=== PATIENT | male | born 1965 | race Caucasian/White ===

== ENCOUNTER 2017-07-05 19:09 | Outpatient (CLI) | payer SELFPAY | END 2017-07-05 19:10 | disposition EMS.NT | LOC: EMS 19:09 | PROVIDERS: ATTEND Surgery | DX: R46.4 Slowness and poor responsiveness (principal); R61 Generalized hyperhidrosis ==

== ENCOUNTER 2019-09-04 00:27 | Emergency (ER) | payer MEDICAID ==
--- NOTE | 2019-09-04 01:02 | ED Physician Documentation ---
PD HPI MALE - Stated complaint Stated Complaint: MALE - Chief complaint Chief Complaint: General - History obtained from History obtained from: Patient - History of Present Illness Timing - onset: Today Timing - duration: Hours Timing - details: Gradual onset, Waxing and waning Pain level max: 8 (when urinating) Pain level now: 0 Associated symptoms: Dysuria. No: Urinary frequency, Unable to urinate (able to urinate, but painful), Discharge, Genital sore / lesion, Testiclar pain Recently seen: Not recently seen - Additional information Additional information: c/o burning dysuria "like razor blades" (per patient) since this morning. denies h/o similar symptoms. Sexually active, monogamous x years. Here with s.o. who is also registered in ED as patient for unrelated c/o Review of Systems Constitutional: denies: Fever, Chills, Sweats GI: denies: Abdominal Pain : reports: Dysuria. denies: Frequency, Unable to Void, Incontinent, Hematuria Skin: denies: Rash PD PAST MEDICAL HISTORY - Past Medical History Past Medical History: No Cardiovascular: None Respiratory: None Neuro: None Endocrine/Autoimmune: None GI: None : None HEENT: None Psych: None Musculoskeletal: None Derm: None - Past Surgical History Past Surgical History: Yes General: Other Ortho: Other - Present Medications Home Medications: Ambulatory Orders Medication Instructions Recorded Confirmed Ciprofloxacin HCl [Cipro] 500 mg PO BID #14 tablet 09/04/19 Phenazopyridine HCl [Pyridium] 200 mg PO TID PRN #10 tablet 09/04/19 - Allergies Allergies/Adverse Reactions: Allergies Allergy/AdvReac Type Severity Reaction Status Date / Time Penicillins AdvReac Unknown Verified 09/05/19 01:06 - Social History Does the pt smoke?: Yes Smoking Status: Current every day smoker Does the pt drink ETOH?: No Does the pt have substance abuse?: Yes Substance Use and Type: Marijuana - Immunizations Immunizations are current?: No - POLST Patient has POLST: No PD ED PE NORMAL - Vitals Vital signs reviewed: Yes - General General: Alert and oriented X 3, No acute distress, Well developed/nourished - Abdomen Abdomen: Soft, Non tender - Derm Derm: Normal color, Warm and dry, No rash PD ED PE EXPANDED - Male Male : Normal Exam, Circumcised. No: Skin lesions, Discharge Results - Vitals Vitals: Oxygen O2 Source Room air - Labs Labs: Laboratory Tests 09/04/19 09/04/19 02:50 02:50 Urine Color ORANGE Urine Clarity CLEAR Urine pH 6.5 Ur Specific [place] 1.015 Urine Protein Urine Glucose (UA) NEGATIVE Urine Ketones NEGATIVE Urine Occult Blood NEGATIVE Urine Nitrite Urine Bilirubin NEGATIVE Urine Urobilinogen Ur Leukocyte Esterase TRACE H Urine RBC 0-5 Urine WBC 4-5 Ur Squamous Epith Cells FEW Squamous Urine Bacteria Rare Urine Mucus Few Strands Ur Microscopic Review INDICATED Urine Culture Comments INDICATED Chlam trachomat DNA PCR NEGATIVE N.gonorrhoeae DNA (PCR) NEGATIVE T. vaginalis (PCR) NEGATIVE PD MEDICAL DECISION MAKING - ED course Complexity details: reviewed results, re-evaluated patient, considered differential, d/w patient Departure - Departure Disposition: 01 Home, Self Care Clinical Impression: Urinary tract infection Qualifiers: Urinary tract infection type: acute cystitis Hematuria presence: without hematuria Qualified Code(s): N30.00 - Acute cystitis without hematuria Condition: Good Instructions: ED UTI Cystitis Male Prescriptions: Ciprofloxacin HCl [Cipro] 500 mg PO BID #14 tablet Phenazopyridine HCl [Pyridium] 200 mg PO TID PRN #10 tablet PRN Reason: dysuria Discharge Date/Time: 09/04/19 04:00
[2019-09-04] MEDS ORDERED: PHENAZOPYRIDINE 100 MG TABLET PO STA (01:26)
[2019-09-04 03:13] LABS: GLUCOSE, URINE (UA) NEGATIVE (NEGATIVE); KETONES,URINE (UA) NEGATIVE (NEGATIVE); LEUKOCYTE ESTERASE, URINE TRACE (NEGATIVE); OCCULT BLOOD,URINE NEGATIVE (NEGATIVE); PH,URINE 6.5 PH (5.0-7.5)
[2019-09-04 03:15] LABS: BILIRUBIN,URINE NEGATIVE (NEGATIVE); CLARITY,URINE CLEAR (CLEAR); ICTOTEST,URINE NEGATIVE
[2019-09-04 03:22] LABS: BACTERIA,URINE Rare /HPF (None Seen); MUCUS,URINE Few Strands; RBC,URINE 0-5 /HPF (0-5); SQUAMOUS EPITHELIAL CELL,UR FEW Squamous (<= Few)
[2019-09-04] MEDS ORDERED: CIPROFLOXACIN 250 MG TABLET PO STA (03:55)
[2019-09-04 04:01] VITALS: BP 130/81
[2019-09-04 18:29] LABS: TRICHOMONAS VAGINALIS DNA NEGATIVE (NEGATIVE)
== END 2019-09-04 04:00 | disposition home or self-care (01) ==
LOC: ED 00:27
DX: N30.00 Acute cystitis without hematuria (principal); F17.200 Nicotine dependence, unspecified, uncomplicated
CPT/HCPCS: 81001; 87086; 87491; 87591; 87661; 99283; A9270; 81003

== ENCOUNTER 2019-09-05 01:01 | Emergency (ER) | payer MEDICAID ==
--- NOTE | 2019-09-05 03:03 | ED Physician Documentation ---
PD HPI MALE - Stated complaint Stated Complaint: MALE - Chief complaint Chief Complaint: Abd Pain - History obtained from History obtained from: Patient - History of Present Illness Timing - onset: Yesterday Timing - details: Abrupt onset Pain level max: 10 (when urinating) Pain level now: 0 Associated symptoms: Dysuria. No: Urinary frequency, Unable to urinate, Discharge, Genital sore / lesion PD HPI MALE CONTRIB FACTORS: Sexually active Recently seen: Emergency Dept (T+R yesterday for same, did not fill the prescriptions (cipro, pyridium)) - Additional information Additional information: T+R yesterday for same symptoms (severe burning painful urination). Given PO cipro and pyridium and prescriptions for same. He returns due to same symptoms. He did not fill the prescriptions although this would have been difficult even if [place] had [place] He has the paper prescription with him and says he plans to fill it in the morning. Review of Systems Constitutional: denies: Fever, Chills, Sweats GI: denies: Abdominal Pain : reports: Dysuria. denies: Frequency, Unable to Void Skin: denies: Lesions PD PAST MEDICAL HISTORY - Past Medical History Past Medical History: No Cardiovascular: None Respiratory: None Neuro: None Endocrine/Autoimmune: None GI: None : None HEENT: None Psych: None Musculoskeletal: None Derm: None - Past Surgical History Past Surgical History: Yes General: Other Ortho: Other - Present Medications Home Medications: Ambulatory Orders Medication Instructions Recorded Confirmed Ciprofloxacin HCl [Cipro] 500 mg PO BID #14 tablet 09/04/19 Phenazopyridine HCl [Pyridium] 200 mg PO TID PRN #10 tablet 09/04/19 - Allergies Allergies/Adverse Reactions: Allergies Allergy/AdvReac Type Severity Reaction Status Date / Time Penicillins AdvReac Unknown Verified 09/05/19 01:06 - Social History Does the pt smoke?: Yes Smoking Status: Current every day smoker Does the pt drink ETOH?: No Does the pt have substance abuse?: Yes - Immunizations Immunizations are current?: No - POLST Patient has POLST: No PD ED PE NORMAL - Vitals Vital signs reviewed: Yes - General General: Alert and oriented X 3, No acute distress, Well developed/nourished - Abdomen Abdomen: Soft, Non tender - Back Back: No CVA TTP Results - Vitals Vitals: Vital Signs - 24 hr 09/05/19 09/05/19 01:05 03:50 Temperature 36.4 C L 36.8 C Heart Rate 64 56 L Respiratory 18 15 Rate Blood Pressure 141/73 H 126/70 O2 Saturation 99 99 Oxygen O2 Source Room air PD MEDICAL DECISION MAKING - ED course Complexity details: considered differential, d/w patient ED course: given IM rocephin and pyridium PO. As noted in HPI, patient says he will fill the prescriptions in the morning (Cipro and pyridium rx from yesterday's ED visit) Departure - Departure Disposition: 01 Home, Self Care Clinical Impression: Urinary tract infection Qualifiers: Urinary tract infection type: acute cystitis Hematuria presence: without hematuria Qualified Code(s): N30.00 - Acute cystitis without hematuria Condition: Good Instructions: ED UTI Cystitis Male Discharge Date/Time: 09/05/19 03:55
[2019-09-05] MEDS ORDERED: cefTRIAXone 1 GM VIAL IM STA (03:11)
[2019-09-05] MEDS ORDERED: LIDOCAINE 1% 2 ML VIAL MC ONE (03:11)
[2019-09-05] MEDS ORDERED: PHENAZOPYRIDINE 100 MG TABLET PO STA (03:11)
[2019-09-05 03:54] VITALS: BP 126/70
== END 2019-09-05 03:55 | disposition home or self-care (01) ==
LOC: ED 01:01
DX: N30.00 Acute cystitis without hematuria (principal); F17.200 Nicotine dependence, unspecified, uncomplicated
CPT/HCPCS: 96372; 99283; A9270

== ENCOUNTER 2021-04-17 04:42 | Emergency (ER) | payer MEDICAID ==
[2021-04-17] MEDS ORDERED: PROPARACAINE 0.5% OPHTH DROPS 15 ML EACHEYE STA (04:59)
[2021-04-17] MEDS ORDERED: OFLOXACIN 0.3% OPHTH DROPS EACHEYE SCH (05:13)
[2021-04-17] MEDS ORDERED: GENTAMICIN 0.3% OPHTH DROPS EACHEYE STA (05:15)
--- NOTE | 2021-04-17 05:15 | ED Physician Documentation ---
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 He took [id number] ibuprofen with some improvement but still has some pain. He was welding yesterday and not using welding goggles. Does not think he got anything in his eye Review of Systems Eyes: reports: Photophobia, Discharge, Irritation PD PAST MEDICAL HISTORY - Past Medical History Past Medical History: Yes Cardiovascular: None Respiratory: None Neuro: None Endocrine/Autoimmune: None GI: None : None HEENT: None Psych: None Musculoskeletal: None Derm: None - Past Surgical History Past Surgical History: Yes General: Other Ortho: Other - Present Medications Home Medications: Ambulatory Orders Medication Instructions Recorded Confirmed No Known Home Medications 04/17/21 04/17/21 - Allergies Allergies/Adverse Reactions: Allergies Allergy/AdvReac Type Severity Reaction Status Date / Time Penicillins AdvReac Unknown Verified 04/17/21 04:50 - Social History Does the pt smoke?: Yes Smoking Status: Current every day smoker Does the pt drink ETOH?: No Does the pt have substance abuse?: Yes - Immunizations Immunizations are current?: No - POLST Patient has POLST: No PD ED PE NORMAL - Vitals Vital signs reviewed: Yes - General General: Alert and oriented X 3, No acute distress, Well developed/nourished - HEENT HEENT: Atraumatic, PERRL, EOMI, Other (Bilateral eyes with increased fluorescein uptake diffusely. no foreign body on corneas or on eversion of eyelids) - Derm Derm: Normal color, Warm and dry - Psych Psych: Normal mood, Normal affect Results - Vitals Vitals: Vital Signs - 24 hr 04/17/21 04/17/21 04:51 04:55 Temperature 36.7 C 36.7 C Heart Rate 83 83 Respiratory 18 18 Rate Blood Pressure 147/87 H 147/87 H O2 Saturation 96 96 Oxygen O2 Source Room air PD MEDICAL DECISION MAKING - ED course ED course: 56-year-old man presents with bilateral corneal abrasions concerning for mild burn injury from welding antibiotic eyedrops provided. Return precautions given. Plan to follow-up with his primary doctor. Departure - Departure Disposition: 01 Home, Self Care Condition: Good Instructions: Corneal Injury Comments: You are seen in the emergency department for corneal injury after welding without goggles. Make sure that you wear them from now on! Return to the emergency department if you do not have improvement with the antibiotic eyedrops prescribed. You can also get lubricating eye ointment [id number] at your local pharmacy that you should use at nighttime. Please follow-up with your primary doctor for referral to ophthalmology.
[2021-04-17 05:23] VITALS: BP 145/85
== END 2021-04-17 05:22 | disposition home or self-care (01) ==
LOC: ED 04:42
DX: S05.02XA Injury of conjunctiva and corneal abrasion without foreign body, left eye, initial encounter (principal); S05.01XA Injury of conjunctiva and corneal abrasion without foreign body, right eye, initial encounter; X58.XXXA Exposure to other specified factors, initial encounter; Y93.89 Activity, other specified; F17.200 Nicotine dependence, unspecified, uncomplicated
CPT/HCPCS: 99282; A9270; J3490

== ENCOUNTER 2021-12-27 21:01 | Emergency (ER) | payer MEDICAID ==
[2021-12-27 21:05] VITALS: BP 165/92
[2021-12-27 23:47] LABS: BILIRUBIN,URINE NEGATIVE (NEGATIVE); GLUCOSE, URINE (UA) NEGATIVE (NEGATIVE); KETONES,URINE (UA) NEGATIVE (NEGATIVE); LEUKOCYTE ESTERASE, URINE NEGATIVE (NEGATIVE); NITRITE,URINE NEGATIVE (NEGATIVE); OCCULT BLOOD,URINE TRACE-INTA (NEGATIVE); PROTEIN,URINE NEGATIVE (NEGATIVE); UROBILINOGEN,URINE 1 (NORMAL) E.U./dL (NORMAL)
[2021-12-27 23:48] LABS: CLARITY,URINE CLEAR (CLEAR)
[2021-12-27] MEDS ORDERED: PHENAZOPYRIDINE 100 MG TABLET PO STA (23:57)
[2021-12-28] MEDS ORDERED: NITROFURANTOIN MACRO 100 MG CAPSULE PO STA (00:22)
--- NOTE | 2021-12-28 00:26 | ED Physician Documentation ---
PD HPI MALE - Stated complaint Stated Complaint: URINATION ISSUES - Chief complaint Chief Complaint: UTI - History obtained from History obtained from: Patient - Additional information Additional information: Patient is a 56-year-old male with no significant past medical history presenting for evaluation of dysuria which has been present for 3 to 4 days. Denies hematuria, flank pain, fever, vomiting, inability to urinate. Denies concern for STD and denies penile discharge or lesions. Review of Systems Constitutional: denies: Fever Nose: denies: Congestion Cardiac: denies: Chest pain / pressure Respiratory: denies: Dyspnea, Cough GI: denies: Abdominal Pain, Vomiting : reports: Dysuria. denies: Hematuria Skin: denies: Rash Neurologic: denies: Headache PD PAST MEDICAL HISTORY - Past Medical History Cardiovascular: None Respiratory: None Neuro: None Endocrine/Autoimmune: None GI: None : None HEENT: None Psych: None Musculoskeletal: None Derm: None - Past Surgical History Past Surgical History: Yes General: Other Ortho: Other - Present Medications Home Medications: Ambulatory Orders Medication Instructions Recorded Confirmed Nitrofurantoin [Macrobid] 1 cap PO BID #14 cap 12/28/21 Phenazopyridine HCl [Pyridium] 200 mg PO TID PRN #6 tablet 12/28/21 - Allergies Allergies/Adverse Reactions: Allergies Allergy/AdvReac Type Severity Reaction Status Date / Time Penicillins AdvReac Unknown Verified 12/27/21 21:04 - Social History Does the pt smoke?: Yes Smoking Status: Current every day smoker Does the pt drink ETOH?: No Does the pt have substance abuse?: Yes - Immunizations Immunizations are current?: No - POLST Patient has POLST: No PD ED PE NORMAL - General General: Alert and oriented X 3, No acute distress, Well developed/nourished - HEENT HEENT: Atraumatic, Moist mucous membranes - Neck Neck: Supple, no meningeal sign - Cardiac Cardiac: RRR, No murmur, Strong equal pulses - Respiratory Respiratory: No respiratory distress, Clear bilaterally - Abdomen Abdomen: Normal bowel sounds, Soft, Non tender, Non distended - Male Male : Civil Estimator present (NAILA Ramirez), Other (Small area of abraded skin to 6 o'clock position of urethral meatus, no discharge, no lesions, No testicular tenderness or swelling) - Derm Derm: Normal color - Extremities Extremities: No edema - Neuro Neuro: No motor deficit, Normal speech - Psych Psych: Normal mood, Normal affect PD ED PE EXPANDED - Male Male visual: 1 - abrasion Results - Vitals Vitals: Vital Signs - 24 hr 12/27/21 21:04 Temperature 36.4 C L Heart Rate 74 Respiratory 19 Rate Blood Pressure 165/92 H O2 Saturation 98 Oxygen O2 Source Room air - Labs Labs: Laboratory Tests 12/27/21 23:40 Urine Color YELLOW Urine Clarity CLEAR Urine pH 6.0 Ur Specific [place] >=1.030 H Urine Protein NEGATIVE Urine Glucose (UA) NEGATIVE Urine Ketones NEGATIVE Urine Occult Blood TRACE-INTA Urine Nitrite NEGATIVE Urine Bilirubin NEGATIVE Urine Urobilinogen 1 (NORMAL) Ur Leukocyte Esterase NEGATIVE Ur Microscopic Review NOT INDICATED Urine Culture Comments NOT INDICATED PD MEDICAL DECISION MAKING - ED course Complexity details: reviewed results ED course: Patient with 3 to 4-day history of dysuria. Denies concern for STDs. Urine analysis appears negative for infection. On exam, patient has a small area of abraded skinNarrow urethral meatus. However he reports feeling That the burning is inside of his penis And feels similar to when he was treated for a urinary tract infection. No testicular tenderness or swelling. Patient was seen prev iously for similar episode and STD testing at that time was negative. STD testing was again sent. Urine culture was also ordered. Patient did not feel better after Pyridium and would like trial of antibiotics. Explained that if his symptoms are not related to an infection that antibiotics will not help and at that they can also have side effects including antibiotic resistance with future infections. Patient is aware of these risks but would like to trial antibiotics as this helped him previously. Also encouraged close follow-up with primary care doctor. Patient is aware of return precautions. Departure - Departure Disposition: 01 Home, Self Care Clinical Impression: Dysuria Condition: Stable Instructions: ED Dysuria Uncertain Cause Prescriptions: Nitrofurantoin [Macrobid] 1 cap PO BID #14 cap Phenazopyridine HCl [Pyridium] 200 mg PO TID PRN #6 tablet PRN Reason: dysuria Comments: You have been evaluated for burning and discomfort when you pee. Your urine test tonight did not show clear signs of an infection. We did add STD testing to your urine but the results are not yet available. You do feel that your pain is similar to when you were treated for a urine infection in the past. I have added a urine culture onto your labs to see if there is an infection that will grow. While we are waiting for these test results I will start you on an antibiotic. I have sent prescriptions for an antibiotic and a medication to help with the burning to your pharmacy, [facility] in [place]. You should also have close follow-up with your primary care doctor regarding your symptoms. If your STD testing is abnormal we will give you a call. Discharge Date/Time: 12/28/21 00:31
[2021-12-29 00:11] LABS: CHLAMYDIA TRACHOMATIS DNA NEGATIVE (NEGATIVE); NEISSERIA GONORRHOEAE DNA NEGATIVE (NEGATIVE)
== END 2021-12-28 00:31 | disposition home or self-care (01) ==
LOC: ED 21:01
DX: R30.0 Dysuria (principal); S30.812A Abrasion of penis, initial encounter; X58.XXXA Exposure to other specified factors, initial encounter; F17.200 Nicotine dependence, unspecified, uncomplicated
CPT/HCPCS: 51798; 81003; 87086; 87491; 87591; 99283; A9270; 81001; 87661

== ENCOUNTER 2022-10-26 07:28 | Emergency (ER) | payer MEDICAID ==
[2022-10-26] MEDS ORDERED: PHENAZOPYRIDINE 100 MG TABLET PO STA (07:54)
[2022-10-26 08:04] LABS: BILIRUBIN,URINE NEGATIVE (NEGATIVE); GLUCOSE, URINE (UA) NEGATIVE (NEGATIVE); KETONES,URINE (UA) TRACE mg/dL (NEGATIVE); LEUKOCYTE ESTERASE, URINE NEGATIVE (NEGATIVE); NITRITE,URINE NEGATIVE (NEGATIVE); OCCULT BLOOD,URINE SMALL (NEGATIVE); PROTEIN,URINE 30 mg/dL (NEGATIVE); UROBILINOGEN,URINE 1 (NORMAL) E.U./dL (NORMAL)
[2022-10-26 08:05] LABS: CLARITY,URINE CLEAR (CLEAR)
[2022-10-26 08:12] LABS: BACTERIA,URINE Few /HPF (None Seen); SQUAMOUS EPITHELIAL CELL,UR RARE Squamous (<= Few); WBC CLUMPS,URINE PRESENT
[2022-10-26] MEDS ORDERED: LIDOCAINE 1% 2 ML VIAL MC ONE (08:23)
[2022-10-26] MEDS ORDERED: DOXYCYCLINE 100 MG TABLET PO STA (08:23)
[2022-10-26] MEDS ORDERED: cefTRIAXone 500 MG VIAL IM STA (08:23)
[2022-10-26] MEDS ORDERED: NITROFURANTOIN MACRO 100 MG CAPSULE PO STA (08:24)
--- NOTE | 2022-10-26 08:26 | ED Physician Documentation ---
PD HPI MALE - Stated complaint Stated Complaint: MALE - Chief complaint Chief Complaint: Abd Pain - History obtained from History obtained from: Patient - Additional information Additional information: Patient is a 57-year-old presenting for evaluation of dysuria for 1 month which feels worse this morning. Reports having a difficulties with his urine stream, pain with urination. He is also noted at times some white discharge from his penis. He denies any penile rash or lesions. He is unsure regarding concerns for sexually transmitted infections. He denies hematuria. He denies chest pa in, difficulty breathing, abdominal pain, vomiting. He reports a history of similar presentations in the past with improvement on antibiotics.He has never seen a urologist. Review of Systems Constitutional: denies: Fever Cardiac: denies: Chest pain / pressure Respiratory: denies: Dyspnea GI: denies: Abdominal Pain, Vomiting : reports: Dysuria Skin: denies: Rash Musculoskeletal: denies: Back pain Neurologic: denies: Headache PD PAST MEDICAL HISTORY - Past Medical History Cardiovascular: None Respiratory: None Neuro: None Endocrine/Autoimmune: None GI: None : None HEENT: None Psych: None Musculoskeletal: None Derm: None - Past Surgical History Past Surgical History: Yes General: Other Ortho: Other - Present Medications Home Medications: Ambulatory Orders Medication Instructions Recorded Confirmed Doxycycline Hyclate 100 mg PO BID #14 tab 10/26/22 Phenazopyridine HCl [Pyridium] 200 mg PO TID PRN #6 tablet 10/26/22 cephALEXin [Keflex] 500 mg PO Q6H #28 cap 10/26/22 - Allergies Allergies/Adverse Reactions: Allergies Allergy/AdvReac Type Severity Reaction Status Date / Time Penicillins AdvReac Unknown Verified 10/26/22 07:36 - Social History Does the pt smoke?: Yes Smoking Status: Current every day smoker Does the pt drink ETOH?: No Does the pt have substance abuse?: Yes - Immunizations Immunizations are current?: No - POLST Patient has POLST: No PD ED PE NORMAL - General General: Alert and oriented X 3, No acute distress, Well developed/nourished - HEENT HEENT: Atraumatic - Neck Neck: Supple, no meningeal sign - Cardiac Cardiac: RRR - Respiratory Respiratory: No respiratory distress - Abdomen Abdomen: Soft, Non tender, Non distended - Derm Derm: Warm and dry - Neuro Neuro: Normal speech Results - Vitals Vitals: Vital Signs - 24 hr 10/26/22 10/26/22 07:37 10:50 Temperature 36.9 C 36.8 C Heart Rate 88 84 Respiratory 18 16 Rate Blood Pressure 166/90 H 158/87 H O2 Saturation 96 99 Oxygen O2 Source Room air - Labs Labs: Laboratory Tests 10/26/22 07:48 Urine Color DARK YELLOW Urine Clarity CLEAR Urine pH 6.0 Ur Specific [place] >=1.030 H Urine Protein 30 H Urine Glucose (UA) NEGATIVE Urine Ketones TRACE Urine Occult Blood SMALL H Urine Nitrite NEGATIVE Urine Bilirubin NEGATIVE Urine Urobilinogen 1 (NORMAL) Ur Leukocyte Esterase NEGATIVE Urine RBC 6-10 H Urine WBC 11-25 H Urine WBC Clumps PRESENT Ur Squamous Epith Cells RARE Squamous Urine Bacteria Few Ur Microscopic Review INDICATED Urine Culture Comments NOT INDICATED PD Medical Decision Making - ED course Complexity details: reviewed results, re-evaluated patient, d/w patient ED course: Patient is a 57-year-old male presenting for evaluation of dysuria. He also reports penile discharge and is unsure about any sexually transmitted infections.His urine was reviewed which demonstrates concerns for infection. STI testing is pending. Patient is agreeable to receive treatment for STI prophylaxis as well as for urinary tract infection.He did feel better after Pyridium. His postvoid bladder scan does not show urinary retention. I did consider imaging but His abdominal exam is otherwise benign.Patient denies testicular pain to suggest torsion.Patient is counseled on treatment plan as well as concerning symptoms to return for. Departure - Departure Disposition: 01 Home, Self Care Clinical Impression: Dysuria, UTI (urinary tract infection) Condition: Stable Instructions: ED UTI Cystitis Male Prescriptions: Doxycycline Hyclate 100 mg PO BID #14 tab cephALEXin [Keflex] 500 mg PO Q6H #28 cap Phenazopyridine HCl [Pyridium] 200 mg PO TID PRN #6 tablet PRN Reason: dysuria Comments: You were evaluated for pain with urination. At this time your bladder is not holding on to too much urine where you need a catheter. Your urine does show markers for infection so I started you on an antibiotic. As you also reported having abnormal discharge I have also started you on treatment for possible sexually transmitted infections and have sent a test off to check for chlamydia, gonorrhea and trichomonas. Please complete the course of antibiotics. I have sent the prescriptions to [facility] in [place]. I would recommend abstaining from intercourse until you complete the antibiotics and would also recommend having any sexual partners also evaluated. If you have any new or worsening symptoms please consider return to the ER. Discharge Date/Time: 10/26/22 10:50
[2022-10-26 11:02] VITALS: BP 158/87
[2022-10-26 23:51] LABS: CHLAMYDIA TRACHOMATIS DNA NEGATIVE (NEGATIVE); NEISSERIA GONORRHOEAE DNA NEGATIVE (NEGATIVE)
== END 2022-10-26 10:50 | disposition home or self-care (01) ==
LOC: ED 07:28
DX: N39.0 Urinary tract infection, site not specified (principal); F17.200 Nicotine dependence, unspecified, uncomplicated
CPT/HCPCS: 51798; 81001; 81003; 87086; 87491; 87591; 87661; 96372; 99283

== ENCOUNTER 2022-10-26 20:10 | Emergency (ER) | payer MEDICAID ==
--- NOTE | 2022-10-26 21:09 | ED Physician Documentation ---
PD HPI MALE - Stated complaint Stated Complaint: MALE - Chief complaint Chief Complaint: General - History obtained from History obtained from: Patient - History of Present Illness Timing - onset: Today Associated symptoms: Dysuria, Unable to urinate Recently seen: Emergency Dept - Additional information Additional information: patient was T+R from this ED this morning for similar symptoms. Patient c/o burning dysuria and increasing suprapubic pressure, urge to urinate, with decreasing amounts of urine output with sensation of incomplete voiding. Denies fever. He was given abx in ED including 500mg IM rocephin for possible STI, and prescribed keflex and doxycycline. Patient says he has started these antibiotics as prescribed, returns for worsening symptoms; his chief c/o is feels like he cannot urinate. He is also taking pyridium as prescribed. Denies testicular pain. Patient was T+R from this ED for similar dysuria (though not retention) 2018, treated for UTI at that time. Review of Systems Constitutional: denies: Fever, Chills, Sweats GI: denies: Abdominal Pain (suprapubic pain but no abdominal pain per se), Nausea, Vomiting, Constipation, Diarrhea : reports: Dysuria, Unable to Void. denies: Frequency, Hematuria PD PAST MEDICAL HISTORY - Past Medical History Cardiovascular: None Respiratory: None Neuro: None Endocrine/Autoimmune: None GI: None : None HEENT: None Psych: None Musculoskeletal: None Derm: None - Past Surgical History Past Surgical History: Yes General: Other Ortho: Other - Present Medications Home Medications: Ambulatory Orders Medication Instructions Recorded Confirmed Doxycycline Hyclate 100 mg PO BID #14 tab 10/26/22 Phenazopyridine HCl [Pyridium] 200 mg PO TID PRN #6 tablet 10/26/22 cephALEXin [Keflex] 500 mg PO Q6H #28 cap 10/26/22 oxyCODONE [Roxicodone] 5 - 10 mg PO Q6H PRN #14 tablet 10/27/22 - Allergies Allergies/Adverse Reactions: Allergies Allergy/AdvReac Type Severity Reaction Status Date / Time Penicillins AdvReac Unknown Verified 10/26/22 20:29 - Social History Does the pt smoke?: Yes Smoking Status: Current every day smoker Does the pt drink ETOH?: No Does the pt have substance abuse?: Yes - Immunizations Immunizations are current?: No - POLST Patient has POLST: No PD ED PE NORMAL - Vitals Vital signs reviewed: Yes - General General: Alert and oriented X 3, Well developed/nourished, Other (anxious, appears uncomfortable at times) - Abdomen Abdomen: Soft, Non tender, Non distended - Back Back: No CVA TTP Results - Vitals Vitals: Oxygen O2 Source Room air - Labs Labs: Microbiology 10/26/22 22:30 Urine Culture - Preliminary Urine,Random CULTURE IN PROGRESS. RESULTS TO FOLLOW. Laboratory Tests 10/26/22 22:30 Urine Color ORANGE Urine Clarity CLEAR Urine pH 6.5 Ur Specific [place] 1.025 Urine Protein 100 H Urine Glucose (UA) 100 H Urine Ketones TRACE Urine Occult Blood NEGATIVE Urine Nitrite Urine Bilirubin COLOR INTERFERENCE Urine Urobilinogen Ur Leukocyte Esterase TRACE H Urine RBC 0-5 Urine WBC 6-10 H Ur Squamous Epith Cells RARE Squamous Urine Bacteria Rare Urine Sperm PRESENT Ur Microscopic Review INDICATED Urine Culture Comments INDICATED PD Medical Decision Making - ED course Complexity details: reviewed old records, reviewed results, re-evaluated patient, considered differential, d/w patient ED course: ED RN performed bedside bladder scan with result showing only 320 cc. I explained to patient that this is not an unusual amount of urine and I suspect his symptoms are due to bladder inflammation (cystitis, UTI) that are making him feel like he has to urinate and feel as though the bladder is distended. He insists he has a overly-full bladder and that he needs to get the urine out of him. I explained that the only way this can be done, if he truly is unable to urinate , is to place a catheter. He is agreeable to this, but indicates that he has "a narrow pee hole" and fears we will not have a small enough catheter. Indeed, ED RN was only able to pass a pediatric-sized feeding tube; this did result in 320 cc urine output and patient says he felt relief of his symptoms. He subsequently was able to urinate in the bathroom although he says he is still having significant pain with urination (urethra, suprapubic). He is given 1 gram IM rocephin and 10mg PO oxycodone with rx for percocet. I encouraged him to continue the antibiotics as previously prescribed and follow up with his primary care provider , next available appointment. He would possibly benefit from a urology referral for these recurrent episodes. Return precautions reviewed. I am prescribing a short course of short-acting opioid pain medication for this patient. I have reviewed the patients MOLD BURNER and no concerning findings were noted. I have discussed that the opioids are for short term therapy only, and will not be refilled from the ED. Departure - Departure Disposition: 01 Home, Self Care Clinical Impression: Urinary tract infection Qualifiers: Urinary tract infection type: acute cystitis Hematuria presence: without hematuria Qualified Code(s): N30.00 - Acute cystitis without hematuria Condition: Good Instructions: ED UTI Cystitis Male Prescriptions: oxyCODONE [Roxicodone] 5 - 10 mg PO Q6H PRN #14 tablet PRN Reason: Pain Comments: As we discussed, you did not have an excessive amount of urine in the bladder when the catheter was placed.I strongly suspect that you are experiencing sensation of a full bladder because of a urinary tract infection rather than the bladder actually being particularly distended. You were given a shot of an antibiotic (you are also given this same antibiotic as a shot on your previous visit, but you are given another dose today to try to speed up the process of ge tting rid of the infection). Please continue the antibiotics that were prescribed on your previous visit. It is very important that you follow-up with your primary care provider for reevaluation, next available appointment. You might benefit from a referral to a specialist (urologist). Certainly, you can return to the emergency department at any time if you feel your symptoms are worsening. I have electronically submitted a prescription for Percocet (narcotic/opiate pain medication) to the [facility] pharmacy in [place]. I am prescribing a short course of narcotic pain medication for you. These are potentially dangerous and addictive medications that should be used carefully. These medications may constipate you. Take an kkbe-cow-[id number] stool softener (docusate) twice daily with plenty of water while taking these medications. If you go 24 hours without a bowel movement, take xhie-prd-glrouoq miralax, per package instructions. Do not drink or drive while taking these medications. If you received narcotic or sedating medications while in the emergency department, do not drive for 24 hours. Store this medication in a safe, secure place and out of reach of children. It is a violation of federal law to give or sell this medication to another person or to use in a manner other than prescribed. The ED will not refill narcotic prescriptions, including prescriptions lost or stolen. To dispose of unwanted medications: 1. [facility] at [address] in [place] has a medication drop box. They accept prescription medications (in pill form) Monday through Monday 9:00 a.m. to 5:00 p.m. 2. The [facility] accepts prescription medications (in pill form only) for disposal year round. Call for more information. 3. Contact the [facility] for the next [facility] sponsored prescription drug collection event. , [phone], or [phone]; Discharge Date/Time: 10/27/22 03:07
[2022-10-26] MEDS ORDERED: PHENAZOPYRIDINE 100 MG TABLET PO STA (21:50)
[2022-10-26 22:47] LABS: GLUCOSE, URINE (UA) 100 mg/dL (NEGATIVE); KETONES,URINE (UA) TRACE mg/dL (NEGATIVE); LEUKOCYTE ESTERASE, URINE TRACE (NEGATIVE); OCCULT BLOOD,URINE NEGATIVE (NEGATIVE); PH,URINE 6.5 PH (5.0-7.5); PROTEIN,URINE 100 mg/dL (NEGATIVE)
[2022-10-26 22:54] LABS: CLARITY,URINE CLEAR (CLEAR)
[2022-10-26 23:01] LABS: BILIRUBIN,URINE COLOR INTERFERENCE (NEGATIVE)
[2022-10-26 23:02] LABS: BACTERIA,URINE Rare /HPF (None Seen); RBC,URINE 0-5 /HPF (0-5); SQUAMOUS EPITHELIAL CELL,UR RARE Squamous (<= Few)
[2022-10-26 23:03] LABS: SPERM,URINE PRESENT
[2022-10-27] MEDS ORDERED: cefTRIAXone 1 GM VIAL IM STA (01:30)
[2022-10-27] MEDS ORDERED: LIDOCAINE 1% 2 ML VIAL MC ONE (01:30)
[2022-10-27] MEDS ORDERED: oxyCODONE 5 MG TABLET PO STA (01:31)
[2022-10-27 03:06] VITALS: BP 125/80
== END 2022-10-27 03:07 | disposition home or self-care (01) ==
LOC: ED 20:10
DX: N30.00 Acute cystitis without hematuria (principal); F17.200 Nicotine dependence, unspecified, uncomplicated
CPT/HCPCS: 51798; 81001; 87086; 87491; 87591; 96372; 99283; 99284; A9270; 81003; 87661

== ENCOUNTER 2022-11-07 03:23 | Emergency (ER) | payer MEDICAID ==
[2022-11-07 03:51] LABS: BILIRUBIN,URINE NEGATIVE (NEGATIVE); GLUCOSE, URINE (UA) NEGATIVE (NEGATIVE); KETONES,URINE (UA) NEGATIVE (NEGATIVE); LEUKOCYTE ESTERASE, URINE NEGATIVE (NEGATIVE); NITRITE,URINE NEGATIVE (NEGATIVE); OCCULT BLOOD,URINE TRACE-INTA (NEGATIVE); PROTEIN,URINE NEGATIVE (NEGATIVE); UROBILINOGEN,URINE 1 (NORMAL) E.U./dL (NORMAL)
[2022-11-07 03:57] LABS: CLARITY,URINE CLEAR (CLEAR)
--- NOTE | 2022-11-07 04:33 | ED Physician Documentation ---
History of Present Illness - Stated complaint Stated Complaint: MALE - Chief complaint Chief Complaint: Abd Pain - History obtained from History obtained from: Patient, Friend - Additonal information Additional information: 57-year-old man presents with persistent dysuria since his most recent ED visit 15 days ago. Patient was treated with antibiotics for possible STI.Since that time he has had difficulty urinating and pain with urination. Denies fever Review of Systems Constitutional: denies: Fever GI: denies: Abdominal Pain, Nausea : reports: Dysuria. denies: Frequency PD PAST MEDICAL HISTORY - Past Medical History Past Medical History: No Cardiovascular: None Respiratory: None Neuro: None Endocrine/Autoimmune: None GI: None : None HEENT: None Psych: None Musculoskeletal: None Derm: None - Past Surgical History Past Surgical History: Yes General: Other Ortho: Other - Present Medications Home Medications: Ambulatory Orders Medication Instructions Recorded Confirmed Tamsulosin [Flomax] 0.4 mg PO DAILY 14 Days #14 tab 11/07/22 - Allergies Allergies/Adverse Reactions: Allergies Allergy/AdvReac Type Severity Reaction Status Date / Time Penicillins AdvReac Unknown Verified 11/07/22 03:35 - Social History Does the pt smoke?: Yes Smoking Status: Current every day smoker Does the pt drink ETOH?: No Does the pt have substance abuse?: Yes - Immunizations Immunizations are current?: No - POLST Patient has POLST: No PD ED PE NORMAL - Vitals Vital signs reviewed: Yes - General General: Alert and oriented X 3, No acute distress, Well developed/nourished - Back Back: No CVA TTP - Derm Derm: Normal color, Warm and dry Results - Vitals Vitals: Vital Signs - 24 hr 11/07/22 03:31 Temperature 36.8 C Heart Rate 79 Respiratory 16 Rate Blood Pressure 150/92 H O2 Saturation 96 Oxygen O2 Source Room air - Labs Labs: Laboratory Tests 11/07/22 03:41 Urine Color YELLOW Urine Clarity CLEAR Urine pH 6.0 Ur Specific [place] >=1.030 H Urine Protein NEGATIVE Urine Glucose (UA) NEGATIVE Urine Ketones NEGATIVE Urine Occult Blood TRACE-INTA Urine Nitrite NEGATIVE Urine Bilirubin NEGATIVE Urine Urobilinogen 1 (NORMAL) Ur Leukocyte Esterase NEGATIVE Ur Microscopic Review NOT INDICATED Urine Culture Comments NOT INDICATED PD Medical Decision Making - ED course ED course: 57-year-old man presents with Dysuria for the past month. He does not have a urinary tract infection at this time but STI panel was sent. Plan to follow-up with urology. He will go to his primary care provider for referral. Return precautions given. Departure - Departure Disposition: 01 Home, Self Care Clinical Impression: Dysuria Condition: Stable Instructions: ED Dysuria Uncertain Cause Prescriptions: Tamsulosin [Flomax] 0.4 mg PO DAILY 14 Days #14 tab Comments: You were seen in the emergency department for pain with urinating. You do not have a urinary tract infection. Please follow-up with urology. Return to the emergency department for new or worsening symptoms or other concerns. Electronic prescription was sent to [facility] in [place]
[2022-11-07 04:41] VITALS: BP 148/88
[2022-11-07 23:24] LABS: CHLAMYDIA TRACHOMATIS DNA NEGATIVE (NEGATIVE); NEISSERIA GONORRHOEAE DNA NEGATIVE (NEGATIVE)
== END 2022-11-07 04:39 | disposition home or self-care (01) ==
LOC: ED 03:23
DX: R30.0 Dysuria (principal); F17.200 Nicotine dependence, unspecified, uncomplicated
CPT/HCPCS: 81001; 81003; 87086; 87491; 87591; 87661; 99283

== ENCOUNTER 2022-12-07 10:25 | Emergency (ER) | payer MEDICAID ==
[2022-12-07 11:00] LABS: BILIRUBIN,URINE NEGATIVE (NEGATIVE); CLARITY,URINE CLEAR (CLEAR); GLUCOSE, URINE (UA) NEGATIVE (NEGATIVE); KETONES,URINE (UA) NEGATIVE (NEGATIVE); LEUKOCYTE ESTERASE, URINE NEGATIVE (NEGATIVE); NITRITE,URINE NEGATIVE (NEGATIVE); OCCULT BLOOD,URINE SMALL (NEGATIVE); PROTEIN,URINE NEGATIVE (NEGATIVE); UROBILINOGEN,URINE 1 (NORMAL) E.U./dL (NORMAL)
[2022-12-07 11:15] LABS: RBC,URINE 0-5 /HPF (0-5); WBC,URINE 0-3 /HPF (0-3)
[2022-12-07 11:16] LABS: BACTERIA,URINE Rare /HPF (None Seen); SQUAMOUS EPITHELIAL CELL,UR NONE SEEN (<= Few)
--- NOTE | 2022-12-07 11:30 | ED Physician Documentation ---
PD HPI MALE - Stated complaint Stated Complaint: MALE - Chief complaint Chief Complaint: UTI - History obtained from History obtained from: Patient - Additional information Additional information: 57-year-old male presents with dysuria. He states the tip of his penis hurts when he tries to pee and it is scabbed over and only "sprays" and he has difficulty having regular flow. He has been seen multiple times in the past here for dysuria symptoms and typically his urine cultures or his urinalyses are negative for infection. He has been told to follow-up with urology in the past but has not done so yet. He presents with the same symptoms that he has had in the past including dysuria, difficulty with flow, and now notes some tenderness to the tip of his penis. He has not had fever chills, abdominal pain, nausea vomiting diarrhea, flank pain. He states he and his are not sexually active because it hurts him too much to engage in sexual intercourse. Review of Systems Constitutional: reports: Reviewed and negative, Other (All other systems were reviewed and are negative except as described in HPI) PD PAST MEDICAL HISTORY - Past Medical History Cardiovascular: None Respiratory: None Neuro: None Endocrine/Autoimmune: None GI: None : None HEENT: None Psych: None Musculoskeletal: None Derm: None - Past Surgical History Past Surgical History: Yes General: Other Ortho: Other - Present Medications Home Medications: Ambulatory Orders Medication Instructions Recorded Confirmed Tamsulosin [Flomax] 0.4 mg PO DAILY 14 Days #14 tab 11/07/22 Clotrimazole 1% Cream [Lotrimin 1% 0 gm TOP BID #30 gm 12/07/22 Cream] - Allergies Allergies/Adverse Reactions: Allergies Allergy/AdvReac Type Severity Reaction Status Date / Time Penicillins AdvReac Unknown Verified 12/07/22 10:35 - Social History Does the pt smoke?: Yes Smoking Status: Current every day smoker Does the pt drink ETOH?: No Does the pt have substance abuse?: Yes - Immunizations Immunizations are current?: No - POLST Patient has POLST: No PD ED PE NORMAL - Vitals Vital signs reviewed: Yes - General General: Alert and oriented X 3, No acute distress, Well developed/nourished - HEENT HEENT: Atraumatic, Moist mucous membranes - Cardiac Cardiac: RRR, No murmur - Respiratory Respiratory: No respiratory distress, Clear bilaterally - Abdomen Abdomen: Normal bowel sounds, Soft, Non tender, Non distended - Male Male : Other (There are white patches of [place]col[place]kin on the underside of the penis and around the tip of the penis, There appears to be some slight scabbing or irritation around the urethral meatus. The urethral meatus is partially occluded by thickened skin or scar tissue. There is no erythema, no zafar) - Back Back: No CVA TTP, No spinal TTP Results - Vitals Vitals: Vital Signs - 24 hr 12/07/22 10:32 Temperature 36.0 C L Heart Rate 73 Respiratory 16 Rate Blood Pressure 148/90 H O2 Saturation 96 Oxygen O2 Source Room air - Labs Labs: Laboratory Tests 12/07/22 10:50 Urine Color DARK YELLOW Urine Clarity CLEAR Urine pH 6.0 Ur Specific [place] >=1.030 H Urine Protein NEGATIVE Urine Glucose (UA) NEGATIVE Urine Ketones NEGATIVE Urine Occult Blood SMALL H Urine Nitrite NEGATIVE Urine Bilirubin NEGATIVE Urine Urobilinogen 1 (NORMAL) Ur Leukocyte Esterase NEGATIVE Urine RBC 0-5 Urine WBC 0-3 Ur Squamous Epith Cells NONE SEEN Urine Bacteria Rare Ur Microscopic Review INDICATED Urine Culture Comments NOT INDICATED PD Medical Decision Making - ED course Complexity details: reviewed old records, reviewed results, considered differential, d/w patient, d/w family ED course: 57-year-old male with a history of recurrent visits for dysuria presents again with dysuria. He has been referred to urology in the past but has not made an appointment yet. On exam today, patient has likely lichen sclerosis around the tip of his penis with scar tissue and stricture of the urethral meatus. He is able to void at this time but the flow is decreasing. There are no signs of urinary tract infection on urinalysis today.I discussed with patient that he will need to make an appointment to see urology as soon as possible for evaluation of the stricture. In the meantime, I am going to give him Clotrimazole and advised him to keep the area clean with gentle soap and water at least twice a day or more frequently and then apply the clotrimazole ointm ent. He was advised that if he becomes unable to void he will need to return to the ER for Jacobsen catheter insertion which likely will be complicated by his urethral meatus scarring. 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 Please use the cream I have ordered and please call and set up an appointment with urology.
[2022-12-07 12:06] VITALS: BP 130/66
== END 2022-12-07 12:30 | disposition home or self-care (01) ==
LOC: ED 10:25
DX: N35.111 Postinfective urethral stricture, not elsewhere classified, male, meatal (principal); F17.200 Nicotine dependence, unspecified, uncomplicated
CPT/HCPCS: 81001; 81003; 87086; 99283; 99284

== ENCOUNTER 2023-07-07 10:05 | Emergency (ER) | payer MEDICAID, OTHER ==
[2023-07-07 10:30] VITALS: BP 161/91; O2SAT 99
[2023-07-07 10:40] LABS: MUDS CUTOFF CONCENTRATIONS CUTOFF CONC BELOW:
[2023-07-07 10:41] LABS: BILIRUBIN,URINE NEGATIVE (NEGATIVE); GLUCOSE, URINE (UA) NEGATIVE (NEGATIVE); KETONES,URINE (UA) NEGATIVE (NEGATIVE); LEUKOCYTE ESTERASE, URINE NEGATIVE (NEGATIVE); NITRITE,URINE NEGATIVE (NEGATIVE); OCCULT BLOOD,URINE TRACE-INTA (NEGATIVE); PROTEIN,URINE NEGATIVE (NEGATIVE); UROBILINOGEN,URINE 0.2 (NORMAL) E.U./dL (NORMAL)
[2023-07-07 10:42] LABS: CLARITY,URINE CLEAR (CLEAR)
--- NOTE | 2023-07-07 10:42 | ED Physician Documentation ---
History of Present Illness - Stated complaint Stated Complaint: - Chief complaint Chief Complaint: General - History obtained from History obtained from: Patient - Additonal information Additional information: 58-year-old gentleman presents for the evaluation of a longstanding lesion on his penis. He has been seen several times for this in this emergency department, he says has been going on for about a year but first visit I see for it was [place] of 2019. And has been here 9 times since. Previous diagnosis of lichen planus with mild improvement with antifungal agents. For unclear reas ons although he has been told to follow-up with urology multiple times, he has not, seemingly due to difficulty navigating the system. PD PAST MEDICAL HISTORY - Past Medical History Cardiovascular: None Respiratory: None Neuro: None Endocrine/Autoimmune: None GI: None : None HEENT: None Psych: None Musculoskeletal: None Derm: None - Past Surgical History Past Surgical History: Yes General: Other Ortho: Other - Present Medications Home Medications: Ambulatory Orders Medication Instructions Recorded Confirmed Clotrimazole 1% Cream [Lotrimin 1% 0 gm TOP BID #45 ml 07/07/23 Cream] Doxycycline [Vibramycin] 100 mg PO BID #14 tablet 07/07/23 - Allergies Allergies/Adverse Reactions: Allergies Allergy/AdvReac Type Severity Reaction Status Date / Time Penicillins AdvReac Unknown Verified 12/07/22 10:35 - Social History Does the pt smoke?: Yes Smoking Status: Current every day smoker Does the pt drink ETOH?: No Does the pt have substance abuse?: Yes - Immunizations Immunizations are current?: No - POLST Patient has POLST: No PD ED PE NORMAL - Vitals Vital signs reviewed: Yes - General General: Alert and oriented X 3, No acute distress, Other (Disheveled, poorly kempt.) - Male Male : Other (There is a well-demarcated white plaque on the anterior surface of the penis and glans, it encompasses much of the glans and the urethra and then down the anterior side of the penis almost to the base.) Results - Vitals Vitals: Vital Signs - 24 hr 07/07/23 10:14 Temperature 36.9 C Heart Rate 98 Respiratory 20 Rate Blood Pressure 161/91 H O2 Saturation 99 Oxygen O2 Source Room air - Labs Labs: Laboratory Tests 07/07/23 10:35 Urine Color DARK YELLOW Urine Clarity CLEAR Urine pH 6.0 Ur Specific [place] >=1.030 H Urine Protein NEGATIVE Urine Glucose (UA) NEGATIVE Urine Ketones NEGATIVE Urine Occult Blood TRACE-INTA Urine Nitrite NEGATIVE Urine Bilirubin NEGATIVE Urine Urobilinogen 0.2 (NORMAL) Ur Leukocyte Esterase NEGATIVE Ur Microscopic Review NOT INDICATED Urine Culture Comments NOT INDICATED Urine Opiates Screen POSITIVE H Ur Oxycodone Screen NEGATIVE Urine Methadone Screen NEGATIVE Ur Propoxyphene Screen NEGATIVE Ur Barbiturates Screen NEGATIVE Ur Tricyclics Screen NEGATIVE Ur Phencyclidine Scrn NEGATIVE Ur Amphetamine Screen POSITIVE H U Methamphetamines Scrn POSITIVE H U Benzodiazepines Scrn NEGATIVE Urine Cocaine Screen NEGATIVE U Cannabinoids Screen POSITIVE H PD Medical Decision Making - ED course ED course: 58-year-old gentleman with penile lesion that unfortunately I suspect probably represents squamous cell carcinoma and he has failed to follow-up despite multiple admonitions to do the same. Today I was quite darin with him that a biopsy was necessary of this lesion and I also emailed our cancer coordinator and urologist who will try to get him into the office and arrange PCP follow-up as well. Work-up in the emergency department consisted of a urinalysis which was normal. Urine drug screen positive for opiates, methamphetamine, and cannabis. STD tests pending on discharge but have been negative with previous encounters for the same issue. Departure - Departure Disposition: 01 Home, Self Care Clinical Impression: Penile lesion Condition: Good Record reviewed to determine appropriate education?: Yes Follow-Up: Wilmer Nettles MD [Provider Admit Priv/Credential] - Prescriptions: Clotrimazole 1% Cream [Lotrimin 1% Cream] 0 gm TOP BID #45 ml Doxycycline [Vibramycin] 100 mg PO BID #14 tablet Comments: I am concerned that this lesion represents a squamous cell carcinoma of the penis. As such it is imperative that you follow-up with the specialist for a biopsy. To do that the specialist is listed on this form and you can call his office directly. They may need a PCP referral. In which case [place] Start calling around and see which one can get you in the soonest. Forms: PCP List Discharge Date/Time: 07/07/23 11:11
[2023-07-07 10:53] LABS: AMPHETAMINE SCREEN,URINE POSITIVE (NEGATIVE); BARBITURATE SCREEN,UR NEGATIVE (NEGATIVE); BENZODIAZEPINES SCREEN, URINE NEGATIVE (NEGATIVE); COCAINE SCREEN URINE NEGATIVE (NEGATIVE); METHADONE SCREEN, URINE NEGATIVE (NEGATIVE); METHAMPHETAMINES SCREEN, URINE POSITIVE (NEGATIVE); OPIATE SCREEN, URINE POSITIVE (NEGATIVE); OXYCODONE SCREEN, URINE NEGATIVE (NEGATIVE); PROPOXYPHENE SCREEN, URINE NEGATIVE (NEGATIVE); THC CANNABINOID SCREEN, URINE POSITIVE (NEGATIVE); TRICYCLIC ANTIDEPRESSANT,URINE NEGATIVE (NEGATIVE)
[2023-07-07 13:19] LABS: CHLAMYDIA TRACHOMATIS DNA NEGATIVE (NEGATIVE); NEISSERIA GONORRHOEAE DNA NEGATIVE (NEGATIVE); TRICHOMONAS VAGINALIS DNA NEGATIVE (NEGATIVE)
== END 2023-07-07 11:11 | disposition home or self-care (01) ==
LOC: ED 10:05
DX: N48.89 Other specified disorders of penis (principal); F17.200 Nicotine dependence, unspecified, uncomplicated
CPT/HCPCS: 80306; 81001; 81003; 87086; 87491; 87591; 87661; 99283; 99284

== ENCOUNTER 2023-07-31 11:04 | Day surgery (SDC) | payer MEDICAID ==
[2023-07-31] MEDS ORDERED: LACTATED RINGERS 1,000 ML IV ONE (11:19)
[2023-07-31] MEDS ORDERED: LIDOCAINE-MPF 1% 30 ML VIAL ONE (11:26)
[2023-07-31] MEDS ORDERED: BUPIVACAINE 0.5% PF 10 ML VIAL ONE (11:26)
[2023-07-31] MEDS ORDERED: BACITRACIN ZINC OINT 1 PACKET TOP ONE (11:26)
[2023-07-31] MEDS ORDERED: ceFAZolin 2 GM VIAL ONE (11:33)
[2023-07-31] MEDS ORDERED: LIDOCAINE 1% 50 ML MDV SUBQ ONE ×2 (11:44)
[2023-07-31] MEDS ORDERED: fentaNYL 100 MCG/2 ML VIAL ONE ×2 (11:45→12:05)
[2023-07-31] MEDS ORDERED: MIDAZOLAM 2 MG/2 ML VIAL ONE ×2 (11:45→12:05)
[2023-07-31] MEDS ORDERED: PROPOFOL 500 MG/50 ML 500 MG/50 ML VIAL ONE ×2 (11:45→12:58)
[2023-07-31] MEDS ORDERED: LIDOCAINE-PF 2% 10 ML AMP SUBQ ONE (12:58)
[2023-07-31] MEDS ORDERED: BACITRACIN ZINC OINT 14 GM TOP ONE (13:04)
[2023-07-31] MEDS ORDERED: ONDANSETRON 4 MG/2 ML VIAL IVP PRN ×2 (13:08→13:09)
[2023-07-31] MEDS ORDERED: oxyCODONE 5 MG TABLET PO PRN (13:08)
[2023-07-31] MEDS ORDERED: ATROPINE ABBOJECT 1 MG/10 ML SYRINGE IVP PRN (13:09)
[2023-07-31] MEDS ORDERED: MORPHINE 2 MG/ML CARPUJECT IVP PRN (13:09)
[2023-07-31] MEDS ORDERED: ePHEDrine 50 MG/ML VIAL IVP PRN (13:09)
[2023-07-31] MEDS ORDERED: HYDROmorphone 0.5 MG/0.5 ML SYRINGE IVP PRN (13:09)
[2023-07-31] MEDS ORDERED: METOCLOPRAMIDE 10 MG/2 ML VIAL IVP PRN (13:09)
[2023-07-31] MEDS ORDERED: NALOXONE 0.4 MG/ML VIAL IVP PRN (13:09)
[2023-07-31] MEDS ORDERED: fentaNYL 100 MCG/2 ML VIAL IVP PRN (13:09)
[2023-07-31] MEDS ORDERED: LACTATED RINGERS 750 ML IV ONE (13:15)
--- NOTE | 2023-07-31 13:15 | Discharge Plan ---
Discharge Plan Problem Reviewed?: Yes Disposition: Home, Self Care Prescriptions: Lidocaine Ointment 5% [Xylocaine Ointment 5%] 1 applic TOP QID PRN #35.44 gm PRN Reason: Pain 1-4 Diet: Regular Activity Restrictions: Additional Comments (as per instructions) Shower Restrictions: No Driving Restrictions: No Additional Instructions or Follow Up instructions: You may see drops of blood coming from the tip of your penis over the next week or 2. This is normal. Place gauze or other clean cloths to catch any drips. You will be contacted for follow-up in [address] Nettles No Smoking: If you smoke, Please STOP! Call for help. Follow-up with: Suzan Alcantar PA [Primary Care Provider] -
--- NOTE | 2023-07-31 13:21 | OPERATIVE REPORT ---
Operative Report - General Procedure Date: 07/31/23 Planned Procedure: Cystoscopy, meatotomy Pre-Op Diagnosis: meatal stenosis Procedure Performed: Cystoscopy, meatotomy Post Op Diagnosis: meatal stenosis - Procedure Note Primary Surgeon: Tho Anesthesia Provider: CORIN Akins Anesthesia Technique: MAC Pathology: penis glans biopsy Estimated Blood Loss (mL): 1 Indications: Meatal stenosis Findings: Severe meatal stenosis Complications: None - Other Other Information/Narrative: After informed consent was obtained the patient was brought to the OR and laid in the supine position. Point time the patient was anesthetized per anesthesia protocols. Of note he required a substantial dose of propofol. He was then prepped and draped in usual sterile fashion. A formal timeout was performed reconfirming the patient and procedure. 1% lidocaine was injected into his urethral meatus in a circumferential fashion. He had a pinpoint meatus and the glans in the ventral aspect appeared scarred. His corporal bodies were also noted to be slightly rigid which was not appreciated on his examination in the office, unclear if this is related to anesthesia or a more subtle process. A clamp was then placed both dorsally and ventrally on the meatus at the 6:00 and 12 o'clock position. Iris scissors sharply cut away the excess glans tissue. This was sent for analysis. Using a flexible cystoscope we advanced into the urinary bladder and his bladder appeared normal. His prostate appeared normal his urethra was otherwise normal but his distal urethra did appear blanched, or possibly thickened. 5-0 chromic suture was then placed in [id number] fashion in multiple points of his glans skin connecting to the distal urethral tissue. His meatus was now wide open. There was no bleeding. Bacitracin was placed on the wound. This concluded the procedure. The patient was then brought to the PACU without further incident. All surgical counts were correct.
--- NOTE | 2023-07-31 13:22 | ANESTHESIA ---
Pre-Anesthesia VS, & Labs - Diagnosis meatal senosis - Procedure meatotomy. flex cystoscopy Vital Signs: Temp Pulse Resp BP Pulse Ox O2 Flow Rate 36.0 C L 62 12 114/68 100 07/31/23 13:10 07/31/23 13:10 07/31/23 13:10 07/31/23 13:10 07/31/23 13:10 Height: 6 ft Weight (kg): 87.8 kg Body Mass Index: 26.2 BMI Classification: Overweight - NPO >8 hours - Lab Results Lab results reviewed: Yes Home Medications and Allergies Active Medications Atropine Sulfate (Atropine Abboject 1 Mg/10 Ml Syringe) 0.5 mg IVP Q5M PRN PRN Reason: Bradycardia Stop: 08/01/23 13:09 Ephedrine Sulfate (Ephedrine 50 Mg/Ml Vial) 10 mg IVP Q5M PRN PRN Reason: HYPOTENSION Stop: 08/01/23 13:09 Fentanyl (Fentanyl 100 Mcg/2 Ml Vial) 25 - 50 mcg IVP Q5M PRN PRN Reason: BREAKTHROUGH PAIN (2nd Choice) Stop: 08/01/23 13:09 Hydromorphone HCl (Hydromorphone 0.5 Mg/0.5 Ml Syringe) 0.2 - 0.6 mg IVP Q5M PRN PRN Reason: PAIN (First Choice) Stop: 08/01/23 13:09 Lactated Ringer's (Lr) 1,000 mls @ 100 mls/hr IV .Q10H ALIZA Stop: 07/31/23 23:59 Metoclopramide HCl (Metoclopramide 10 Mg/2 Ml Vial) 10 mg IVP Q6HR PRN PRN Reason: N/V not relieved by Zofran Morphine Sulfate (Morphine 2 Mg/Ml Carpuject) 2 - 4 mg IVP Q5M PRN PRN Reason: PAIN (3rd Choice) Stop: 08/01/23 13:09 Naloxone HCl (Naloxone 0.4 Mg/Ml Vial) 0.1 mg IVP Q2M PRN PRN Reason: RESP RATE <8 Stop: 08/01/23 13:09 Ondansetron HCl (Ondansetron 4 Mg/2 Ml Vial) 4 mg IVP ONCE PRN PRN Reason: N/V (First Choice) Stop: 08/01/23 13:09 Ondansetron HCl (Ondansetron 4 Mg/2 Ml Vial) 4 mg IVP Q6HR PRN PRN Reason: Nausea / Vomiting Oxycodone HCl (Oxycodone 5 Mg Tablet) 5 mg PO Q4HR PRN PRN Reason: Moderate Pain (Level 4-6) Allergies/Adverse Reactions: Allergies Allergy/AdvReac Type Severity Reaction Status Date / Time Penicillins AdvReac Unknown Verified 12/07/22 10:35 Anes History & Medical History - Anesthetic History Anesthesia Complications: reports: No previous complications Family history of Anesthesia Complications: Denies Family history of Malignant Hyperthermia: Denies - Medical History Cardiovascular: reports: Murmur Pulmonary: reports: None Gastrointestinal: reports: None Urinary: reports: Other Neuro: reports: None Musculoskeletal: reports: None Endocrine/Autoimmune: reports: None Blood Disorders: reports: None Skin: reports: None Smoking Status: Current every day smoker Psychosocial: reports: Substance abuse, Amphetamine, Cannabis, Opioid - Surgical History General: Orthopedic: reports: Arthroscopic surgery Exam General: Alert, Oriented x3, Cooperative Dental: Other (edentulous x small remaining fragment lower/front) Mouth Openin Fingerbreadth Neck Mobility: Normal Mallampati classification: II Thyromental Distance: 4-6 cm Respiratory: Lungs clear Cardiovascular: Regular rate Plan Anesthesia Type: MAC Consent for Procedure(s) Verified and Reviewed: Yes Code Status: Attempt Resuscitation ASA classification: 3-Severe systemic disease Is this case an emergency?: No
[2023-07-31] MEDS ORDERED: LACTATED RINGERS 1,000 ML IV SCH (14:00)
[2023-07-31 14:12] VITALS: BP 108/73; O2SAT 96
--- NOTE | 2023-07-31 16:01 | ANESTHESIA POST OP EVALUATION ---
Anesthesia Post Eval - Post Anesthesia Eval Vitals: Last Vital Signs Temp 36.0 C L 07/31/23 14:05 Pulse 67 07/31/23 14:05 Resp 12 07/31/23 14:05 BP 108/73 07/31/23 14:05 Pulse Ox 96 07/31/23 14:05 O2 Flow Rate CV Function Including HR & BP: Stable Pain Control: Satisfactory Nausea & Vomiting: Negative Mental Status: Baseline Respiratory Status: Airway Patent Hydration Status: Satisfactory Anesthesia Complications: None
== END 2023-07-31 11:05 | disposition home or self-care (01) ==
LOC: SDS 11:04
PROVIDERS: ATTEND Urology
PROC: 0TBD8ZX Excision of Urethra, Via Natural or Artificial Opening Endoscopic, Diagnostic (ICD-10-PCS; principal; 2023-07-31 13:30)
DX: N35.811 Other urethral stricture, male, meatal (principal); F17.200 Nicotine dependence, unspecified, uncomplicated
CPT/HCPCS: 52290; A9270; J7120